=== PATIENT | male | born 1945 | race Caucasian/White ===

== ENCOUNTER 2018-11-03 07:35 | Day surgery (SDC) | payer MEDICARE ==
[2018-11-03] MEDS ORDERED: PROPOFOL INJ 200 MG/20 ML VIAL IV ONE (07:36)
[2018-11-03 09:22] VITALS: BP 139/77
--- NOTE | 2018-11-03 11:36 | Operative Report ---
Operative Report DATE OF SURGERY: 11/03/18 PREOPERATIVE DIAGNOSIS: Colorectal cancer screening. Dysphagia POSTOPERATIVE DIAGNOSIS: Schatzki's ring that has broken in situ. Hiatal hernia. Gastritis status post biopsy right Helicobacter pylori. Large colon polyp at approximately 35 cm not able to be removed via colonoscopy. The area was tattooed with Kenia ink. Biopsies obtained. Surgical referral needed OPERATION: Colonoscopy with submucosal injection of Kenia ink. Colonoscopy with biopsy. EGD with biopsy SURGEON: FATMATA HATFIELD ANESTHESIA: LMAC TISSUE REMOVED OR ALTERED: As noted above. COMPLICATIONS: None. ESTIMATED BLOOD LOSS: None. INTRAOPERATIVE FINDINGS: As noted above. PROCEDURE: Patient tolerated the procedure well. No immediate postprocedure complications are noted. Patient is discharged in good condition. Discharge date 11/03/2018. Discharge diet: Regular. Discharge activity: Regular. 2 to 3-week follow-up to discuss findings. Surgical referral needs to be done for lesion to be removed via surgery rather than colonoscopy. Wait on the pathology.
== END 2018-11-03 09:35 | disposition home or self-care (01) ==
LOC: END 07:35
PROVIDERS: ATTEND Internal Medicine Gastroenterology
DX: Z12.11 Encounter for screening for malignant neoplasm of colon (principal); D12.6 Benign neoplasm of colon, unspecified; Z87.891 Personal history of nicotine dependence; K22.2 Esophageal obstruction; K29.50 Unspecified chronic gastritis without bleeding; K44.9 Diaphragmatic hernia without obstruction or gangrene; Z79.82 Long term (current) use of aspirin; Z79.899 Other long term (current) drug therapy; Z13.89 Encounter for screening for other disorder
CPT/HCPCS: 43239; 45380; 45381; 88305 ×2; 00813; J2704; 813

== ENCOUNTER → 2018-11-21 | Outpatient (CLI) | payer MEDICARE ==
[2018-11-21 08:52] LABS: ABSOLUTE BASOPHILS # (AUTO) 0.1 10^3/uL (0.0-0.2); ABSOLUTE EOSINOPHILS # (AUTO) 0.4 10^3/uL (0.0-0.6); ABSOLUTE MONOCYTES (AUTO) 0.8 10^3/uL (0.1-1.4); ABSOLUTE NEUT (AUTO) 4.2 10^3/uL (1.7-8.2); BASOPHILS % (AUTO) 0.7 % (0-2); EOSINOPHILS % (AUTO) 5.3 % (0-6); HEMATOCRIT 36.9 % (37.9-51.0); LYMPHOCYTES % (AUTO) 26.7 % (13-45); MEAN CORPUSCULAR HEMOGLOBIN 28.1 pg (27.0-33.4); MEAN CORPUSCULAR HGB CONC 32.6 g/dL (32.0-36.0); MEAN CORPUSCULAR VOLUME 86 fl (80-97); MONOCYTES % (AUTO) 10.6 % (3-13); PLATELET COUNT 233 10^3/uL (150-450); RED BLOOD COUNT 4.28 10^6/uL (4.35-5.55); RED CELL DISTRIBUTION WIDTH 16.8 % (11.5-14.0); SEGMENTED NEUTROPHILS % (AUTO) 56.7 % (42-78); TOTAL CELLS COUNTED % (AUTO) 100 %; WHITE BLOOD COUNT 7.4 10^3/uL (4.0-10.5)
== END ==
LOC: OD 08:12
PROVIDERS: ATTEND Surgery
DX: C18.7 Malignant neoplasm of sigmoid colon (principal)
CPT/HCPCS: 36415; 82378; 85025

== ENCOUNTER → 2018-11-22 | Outpatient (CLI) | payer MEDICARE ==
[2018-11-22 13:12] LABS: ANION GAP 10 (5-19); BLOOD UREA NITROGEN 28 mg/dL (7-20); CALCIUM 9.5 mg/dL (8.4-10.2); CARBON DIOXIDE 25 mmol/L (22-30); CHLORIDE 105 mmol/L (98-107); GLUCOSE 85 mg/dL (75-110); POTASSIUM 5.5 mmol/L (3.6-5.0)
== END ==
LOC: OD 12:11
PROVIDERS: ATTEND Surgery
DX: D12.6 Benign neoplasm of colon, unspecified (principal); N28.9 Disorder of kidney and ureter, unspecified; K21.9 Gastro-esophageal reflux disease without esophagitis; Z87.898 Personal history of other specified conditions
CPT/HCPCS: 36415; 80048

== ENCOUNTER → 2018-12-26 | Outpatient (CLI) | payer MEDICARE ==
[2018-12-26 10:05] LABS: ANION GAP 10 (5-19); BLOOD UREA NITROGEN 34 mg/dL (7-20); CARBON DIOXIDE 24 mmol/L (22-30); CHLORIDE 105 mmol/L (98-107); GLUCOSE 81 mg/dL (75-110); POTASSIUM 4.5 mmol/L (3.6-5.0)
== END ==
LOC: OD 08:10
PROVIDERS: ATTEND Physician Assistant Surgical
DX: C18.7 Malignant neoplasm of sigmoid colon (principal); Z95.2 Presence of prosthetic heart valve; Z87.898 Personal history of other specified conditions
CPT/HCPCS: 36415; 80048

== ENCOUNTER 2018-12-28 05:31 | Inpatient (IN) | payer MEDICARE ==
[2018-12-21 11:06] LABS: ABSOLUTE EOSINOPHILS # (AUTO) 0.4 10^3/uL (0.0-0.6); ABSOLUTE LYMPHOCYTES (AUTO) 1.5 10^3/uL (0.5-4.7); ABSOLUTE MONOCYTES (AUTO) 0.8 10^3/uL (0.1-1.4); ABSOLUTE NEUT (AUTO) 5.2 10^3/uL (1.7-8.2); BASOPHILS % (AUTO) 0.6 % (0-2); HEMATOCRIT 37.6 % (37.9-51.0); HEMOGLOBIN 12.5 g/dL (13.5-17.0); MEAN CORPUSCULAR HEMOGLOBIN 29.4 pg (27.0-33.4); MEAN CORPUSCULAR HGB CONC 33.2 g/dL (32.0-36.0); MEAN CORPUSCULAR VOLUME 89 fl (80-97); MONOCYTES % (AUTO) 10.1 % (3-13); PLATELET COUNT 257 10^3/uL (150-450); RED BLOOD COUNT 4.25 10^6/uL (4.35-5.55); RED CELL DISTRIBUTION WIDTH 17.3 % (11.5-14.0); SEGMENTED NEUTROPHILS % (AUTO) 65.3 % (42-78); TOTAL CELLS COUNTED % (AUTO) 100 %
[2018-12-21 11:46] LABS: POTASSIUM 5.1 mmol/L (3.6-5.0)
--- NOTE | 2018-12-21 11:50 | RADIOLOGY REPORT (SQ) ---
EXAM DESCRIPTION: CHEST PA/LATERAL COMPLETED DATE/TIME: 12/21/2018 10:02 am REASON FOR STUDY: PRE-OP COMPARISON: None. EXAM PARAMETERS: NUMBER OF VIEWS: two views TECHNIQUE: Digital Frontal and Lateral radiographic views of the chest acquired. RADIATION DOSE: NA LIMITATIONS: none FINDINGS: LUNGS AND PLEURA: No opacities, masses or pneumothorax. No pleural effusion. MEDIASTINUM AND HILAR STRUCTURES: No masses or contour abnormalities. HEART AND VASCULAR STRUCTURES: Old sternotomy for mitral valve replacement. Clips anterior mediastin um likely post CABG. No cardiomegaly. BONES: Chronic appearing L1 50% upper endplate compression deformity HARDWARE: None in the chest. OTHER: No other significant finding. IMPRESSION: No acute findings TECHNICAL DOCUMENTATION: JOB ID: [id number] [employer]- All Rights Reserved Reading location - IP/workstation name: [email or web address]
[~2018-12-28 05:31] MED LIST: CEFAZOLIN SODIUM 1 GM in DEXTROSE 5%-WATER 50 ML IV PRN; LACTATED RINGERS 1000 ML IV PRN; LIDOCAINE 0.5% INJ-PF (5 MG/ML) 50 ML SDV SUBCUT PRN; METRONIDAZOLE 500 MG/NS RTU 500 MG/100 ML RTUPB IV ONE; METRONIDAZOLE 500 MG/NS RTU 500 MG/100 ML RTUPB IV PRN
[2018-12-28] MEDS ORDERED: FENTANYL CITRATE INJ/PF 250 MCG/5 ML AMPULE ONE (07:04)
[2018-12-28] MEDS ORDERED: MORPHINE SULFATE 10 MG/ML INJ ONE (07:04)
[2018-12-28] MEDS ORDERED: LIDOCAINE 2% INJ-PF (100 MG/5 ML) SYRINGE ONE (07:05)
[2018-12-28] MEDS ORDERED: PROPOFOL INJ 200 MG/20 ML VIAL IV ONE (07:05)
[2018-12-28] MEDS ORDERED: MIDAZOLAM 2 MG/2 ML INJ ONE (07:08)
[2018-12-28] MEDS ORDERED: MEPERIDINE HCL/PF INJ 25 MG/1 ML DISP.SYRIN IV PRN (08:41)
[2018-12-28] MEDS ORDERED: MORPHINE SULFATE 10 MG/ML INJ IV PRN ×2 (08:41→10:51)
[2018-12-28] MEDS ORDERED: DIPHENHYDRAMINE HCL 50 MG/ML VIAL IV PRN (08:41)
[2018-12-28] MEDS ORDERED: FENTANYL CITRATE INJ/PF 100 MCG/2 ML AMPUL IV PRN (08:41)
[2018-12-28] MEDS ORDERED: PROMETHAZINE HCL INJ 25 MG/1 ML VIAL IV PRN (08:41)
[2018-12-28] MEDS ORDERED: DEXTROSE 40% GEL 15 GM TUBE PO PRN ×2 (10:44)
[2018-12-28] MEDS ORDERED: DEXTROSE 50%-WATER 25 GM/50 ML DISP.SYRIN IV PRN ×2 (10:44)
[2018-12-28] MEDS ORDERED: GLUCAGON,HUMAN RECOMB 1 MG INJ SUBCUT PRN (10:44)
[2018-12-28] MEDS: FENTANYL CITRATE INJ/PF 100 MCG/2 ML AMPUL ONE ×2 (11:08→11:15)
[2018-12-28] MEDS ORDERED: ACETAMINOPHEN 1,000 MG/100 ML RTUPB IV ONE (11:29)
[2018-12-28] MEDS: HYDROMORPHONE HCL INJ/PF 2 MG/ML AMPULE ONE ×3 (11:29→11:40)
--- NOTE | 2018-12-28 11:31 | Operative Report ---
Nonrecallable Operative Report DATE OF SURGERY: 12/28/18 PREOPERATIVE DIAGNOSIS: left colon mass POSTOPERATIVE DIAGNOSIS: left colon mass OPERATION: left hemicolectomy SURGEON: CHIVO FAIRBANKS 1ST ELECT[employer]IC [employer]AGING SYSTEM OPERATOR: GAVIOTA GRAY ANESTHESIA: GA TISSUE REMOVED OR ALTERED: left colon and splenic flexure COMPLICATIONS: none ESTIMATED BLOOD LOSS: 100cc INTRAOPERATIVE FINDINGS: see note PROCEDURE: Patient was brought to the operating room and awake alert stable condition pl aced in the upper table supine position induced under general anesthesia intubated he was then placed in a low lithotomy position and a Almanzar catheter was placed. After appropriate timeout site verification a varies needle was placed into the umbilicus and the abdomen was insufflated 6 L of CO2 gas. The supraumbilical 10 mm incision was made with a 15 blade and a 10 mm port placed in the abdominal cavity. Intra-abdominal visualization revealed no evidence of Veress needle or trocar injury. 2 lateral foot ports were placed under direct vision on the right side of 5 and a 11 and then on the left side a 5 mm port was also placed under direct vision. We visualized pelvis identified the sigmoid colon was fixed to the left peritoneal reflection which was taken down with the LigaSure device. We finally were able to deal deliver the entire sigmoid into the operative field and did not note in the tattooing on the serosa of the colon. We traced the descending colon up to the proximal descending colon were we noted the tattoo lisa. It was reported at 35 cm however it did appear to be in the proximal descending colon. Therefore we began our dissection by mobilizing the left colon along the white line of Toldt up to the spleen with the LigaSure device being careful not to injure the left ureter. We then mobilized the omentum off the transverse colon. We then came across the splenic flexure with LigaSure device. Freeing up the splenic flexure distal transverse colon and proximal descending colon. Once it was completely freed up we then made an incision on the left anterior abdominal wall with a 15 blade approximately 10 cm long carried our dissection down through subtenons tissue with Bovie cautery divided the rectus fascia with Bovie cautery and placed a wound protector. We delivered the splenic flexure distal transverse colon and proximal descending colon in through the wound. We came across the distal transverse colon with one firing the ALHAJI stapler with a blue load and then and divided the mesentery with the LigaSure device. We then came across the descending colon with one firing the Endo ALHAJI stapler with a blue load. We then performed a colocolostomy between the distal transverse colon and the mid descending colon in 2 layers using interrupted 2-0 silk for the serosal layer and a running 3-0 Vicryl for the mucosal layer. We closed the mesenteric defect with interrupted placed 2-0 silk sutures. Return to specimen back to the abdominal cavity checking for stasis and integrity of the anastomosis and was intact we copiously irrigated the abdominal cavity with normal saline in the pelvis and the left upper quadrant above the spleen and suctioned dry. We closed the peritoneal defect with a running 0 Vicryl suture the posterior sheath was closed with a running 0 Vicryl suture and the anterior sheath was closed with interrupted #2 Vicryl sutures. All skin incisions were then closed with standard skin clips. Estimated blood loss for the procedure was 100 cc sponge needle counts were correct x2 the patient was awakened in the operating room extubated transferred to the recovery room [facility] in stable condition Gaviota MONTAÑO was present for the entire procedure help with wound retraction wound closure.
[2018-12-28] MEDS ORDERED: PROMETHAZINE HCL INJ 25 MG/1 ML VIAL ONE (11:40)
[2018-12-28] MEDS ORDERED: GLYCOPYRROLATE 1 MG/5 ML VIAL ONE (11:58)
[2018-12-28] MEDS ORDERED: DEXAMETHASONE SOD PHOSPHATE INJ 4 MG/1 ML VIAL ONE (11:58)
[2018-12-28] MEDS ORDERED: SUCCINYLCHOLINE CHLORIDE INJ 200 MG/10 ML VIAL ONE (11:58)
[2018-12-28] MEDS ORDERED: PHENYLEPHRINE HCL INJ/PF 10 MG/1 ML SDV ONE (11:58)
[2018-12-28] MEDS ORDERED: ROCURONIUM BROMIDE INJ 50 MG/5 ML VIAL IV ONE (11:58)
[2018-12-28] MEDS ORDERED: NEOSTIGMINE METHYLSULFATE 10 MG/10 ML VIAL ONE (11:58)
[2018-12-28] MEDS ORDERED: ONDANSETRON HCL INJ/PF 4 MG/2 ML SDV ONE (11:58)
[2018-12-28 13:55] LABS: ABSOLUTE LYMPHOCYTES (AUTO) 0.7 10^3/uL (0.5-4.7); ABSOLUTE MONOCYTES (AUTO) 0.5 10^3/uL (0.1-1.4); ABSOLUTE NEUT (AUTO) 6.8 10^3/uL (1.7-8.2); BASOPHILS % (AUTO) 0.5 % (0-2); EOSINOPHILS % (AUTO) 0.2 % (0-6); HEMATOCRIT 35.7 % (37.9-51.0); HEMOGLOBIN 11.8 g/dL (13.5-17.0); LYMPHOCYTES % (AUTO) 8.2 % (13-45); MEAN CORPUSCULAR HEMOGLOBIN 29.4 pg (27.0-33.4); MEAN CORPUSCULAR VOLUME 89 fl (80-97); MONOCYTES % (AUTO) 5.9 % (3-13); PLATELET COUNT 205 10^3/uL (150-450); RED BLOOD COUNT 4.01 10^6/uL (4.35-5.55); RED CELL DISTRIBUTION WIDTH 16.8 % (11.5-14.0); SEGMENTED NEUTROPHILS % (AUTO) 85.2 % (42-78); TOTAL CELLS COUNTED % (AUTO) 100 %
[2018-12-28 14:15] LABS: ANION GAP 9 (5-19); BLOOD UREA NITROGEN 24 mg/dL (7-20); CARBON DIOXIDE 20 mmol/L (22-30); CHLORIDE 108 mmol/L (98-107); GLUCOSE 190 mg/dL (75-110); POTASSIUM 4.5 mmol/L (3.6-5.0)
[2018-12-28] MEDS: HEPARIN SOD (PORCINE) 5,000 UNIT/ML 1 ML VIAL SUBCUT SCH ×2 (15:02→21:02)
[2018-12-28] MEDS: MORPHINE SULFATE 10 MG/ML INJ IV PRN (18:28)
[2018-12-28] MEDS: DEXTROSE 5%-LACTATED RINGERS 1,000 ML IV PRN (18:31)
[2018-12-28] MEDS: FAMOTIDINE INJ/PF 20 MG/2 ML SDV IV SCH (21:02)
[2018-12-29] MEDS: DEXTROSE 5%-LACTATED RINGERS 1,000 ML IV PRN ×3 (03:01→21:49)
[2018-12-29] MEDS: MORPHINE SULFATE 10 MG/ML INJ IV PRN ×2 (03:01→06:01)
[2018-12-29 04:19] LABS: ABSOLUTE LYMPHOCYTES (AUTO) 1.3 10^3/uL (0.5-4.7); ABSOLUTE MONOCYTES (AUTO) 1.1 10^3/uL (0.1-1.4); ABSOLUTE NEUT (AUTO) 10.2 10^3/uL (1.7-8.2); BASOPHILS % (AUTO) 0.2 % (0-2); HEMATOCRIT 32.2 % (37.9-51.0); HEMOGLOBIN 10.7 g/dL (13.5-17.0); LYMPHOCYTES % (AUTO) 10.3 % (13-45); MEAN CORPUSCULAR HEMOGLOBIN 29.5 pg (27.0-33.4); MEAN CORPUSCULAR HGB CONC 33.2 g/dL (32.0-36.0); MEAN CORPUSCULAR VOLUME 89 fl (80-97); MONOCYTES % (AUTO) 8.7 % (3-13); PLATELET COUNT 187 10^3/uL (150-450); RED BLOOD COUNT 3.62 10^6/uL (4.35-5.55); RED CELL DISTRIBUTION WIDTH 16.7 % (11.5-14.0); SEGMENTED NEUTROPHILS % (AUTO) 80.8 % (42-78); TOTAL CELLS COUNTED % (AUTO) 100 %; WHITE BLOOD COUNT 12.7 10^3/uL (4.0-10.5)
[2018-12-29 04:39] LABS: ANION GAP 6 (5-19); BLOOD UREA NITROGEN 19 mg/dL (7-20); CALCIUM 8.3 mg/dL (8.4-10.2); CARBON DIOXIDE 24 mmol/L (22-30); CHLORIDE 107 mmol/L (98-107); GLUCOSE 123 mg/dL (75-110); POTASSIUM 4.6 mmol/L (3.6-5.0)
[2018-12-29] MEDS: HEPARIN SOD (PORCINE) 5,000 UNIT/ML 1 ML VIAL SUBCUT SCH ×3 (05:19→21:49)
--- NOTE | 2018-12-29 07:59 | PDOC PROGRESS REPORT ---
Subjective Progress Note for:: 12/29/18 Subjective:: pod # 1 s/p left hemicolectomy Reason For Visit: D12.6 BENIGN NEOPLASM OF COLON, UNSPECIFIED Physical Exam Vital Signs: Temp Pulse Resp BP Pulse Ox 98.6 F 85 17 117/52 L 97 12/28/18 23:33 12/28/18 23:33 12/28/18 23:33 12/28/18 23:33 12/28/18 23:33 Intake & Output 12/28/18 12/29/18 12/30/18 06:59 06:59 06:59 Intake Total 0 4300 Output Total 1400 Balance 0 2900 Weight 72.8 kg General appearance: PRESENT: mild distress Head exam: PRESENT: normocephalic Eye exam: PRESENT: EOMI Mouth exam: PRESENT: dry mucosa Neck exam: PRESENT: full ROM Respiratory exam: PRESENT: clear to auscultation tian Cardiovascular exam: PRESENT: RRR Pulses: PRESENT: normal radial pulses, normal femoral pulses Vascular exam: PRESENT: normal capillary refill GI/Abdominal exam: PRESENT: soft, tenderness - incisional Rectal exam: PRESENT: deferred Gentrourinary exam: PRESENT: indwelling catheter Extremities exam: PRESENT: full ROM Musculoskeletal exam: PRESENT: full ROM Neurological exam: PRESENT: alert, awake, oriented to person Psychiatric exam: PRESENT: appropriate affect Skin exam: PRESENT: dry Results Laboratory Results: 12/29/18 03:37 12/29/18 03:37 12/28/18 12/28/18 12/29/18 12:39 12:39 03:37 WBC 8.0 12.7 H RBC 4.01 L 3.62 L Hgb 11.8 L 10.7 L Hct 35.7 L 32.2 L MCV 89 89 MCH 29.4 29.5 MCHC 33.0 33.2 RDW 16.8 H 16.7 H Plt Count 205 187 Seg Neutrophils % 85.2 H 80.8 H Sodium 137.0 Potassium 4.5 Chloride 108 H Carbon Dioxide 20 L Anion Gap 9 BUN 24 H Creatinine 1.87 H Est GFR ( Amer) 43 L Glucose 190 H Calcium 8.0 L 12/29/18 03:37 WBC RBC Hgb Hct MCV MCH MCHC RDW Plt Count Seg Neutrophils % Sodium 137.0 Potassium 4.6 Chloride 107 Carbon Dioxide 24 Anion Gap 6 BUN 19 Creatinine 1.89 H Est GFR ( Amer) 42 L Glucose 123 H Calcium 8.3 L Impressions: Chest X-Ray 12/21/18 09:58 IMPRESSION: No acute findings Assessment & Plan - Time Time Spent with patient: 15-24 minutes - Plan Summary Plan Summary: add toradol for pain labs reviewd out of bed to chair today cont only ice chips
[2018-12-29] MEDS ORDERED: KETOROLAC TROMETHAMINE INJ/PF 30 MG/1 ML SDV IV SCH (08:00)
[2018-12-29] MEDS: FAMOTIDINE INJ/PF 20 MG/2 ML SDV IV SCH ×2 (09:15→21:49)
[2018-12-29] MEDS: KETOROLAC TROMETHAMINE INJ/PF 30 MG/1 ML SDV IV PRN ×2 (09:26→15:27)
[2018-12-29 13:17] LABS: ABSOLUTE LYMPHOCYTES (AUTO) 1.2 10^3/uL (0.5-4.7); ABSOLUTE NEUT (AUTO) 10.6 10^3/uL (1.7-8.2); BASOPHILS % (AUTO) 0.2 % (0-2); EOSINOPHILS % (AUTO) 0.3 % (0-6); HEMATOCRIT 33.2 % (37.9-51.0); HEMOGLOBIN 10.8 g/dL (13.5-17.0); MEAN CORPUSCULAR HEMOGLOBIN 29.2 pg (27.0-33.4); MEAN CORPUSCULAR HGB CONC 32.5 g/dL (32.0-36.0); MEAN CORPUSCULAR VOLUME 90 fl (80-97); MONOCYTES % (AUTO) 7.7 % (3-13); PLATELET COUNT 195 10^3/uL (150-450); SEGMENTED NEUTROPHILS % (AUTO) 82.8 % (42-78); TOTAL CELLS COUNTED % (AUTO) 100 %; WHITE BLOOD COUNT 12.8 10^3/uL (4.0-10.5)
[2018-12-29 13:39] LABS: ANION GAP 7 (5-19); BLOOD UREA NITROGEN 19 mg/dL (7-20); CALCIUM 8.5 mg/dL (8.4-10.2); CARBON DIOXIDE 25 mmol/L (22-30); CHLORIDE 105 mmol/L (98-107); GLUCOSE 111 mg/dL (75-110); POTASSIUM 4.7 mmol/L (3.6-5.0)
[2018-12-30 04:55] LABS: ABSOLUTE BASOPHILS # (AUTO) 0.1 10^3/uL (0.0-0.2); ABSOLUTE EOSINOPHILS # (AUTO) 0.2 10^3/uL (0.0-0.6); ABSOLUTE LYMPHOCYTES (AUTO) 1.1 10^3/uL (0.5-4.7); ABSOLUTE MONOCYTES (AUTO) 0.8 10^3/uL (0.1-1.4); ABSOLUTE NEUT (AUTO) 9.1 10^3/uL (1.7-8.2); BASOPHILS % (AUTO) 0.5 % (0-2); EOSINOPHILS % (AUTO) 1.5 % (0-6); HEMATOCRIT 27.6 % (37.9-51.0); HEMOGLOBIN 9.1 g/dL (13.5-17.0); MEAN CORPUSCULAR HEMOGLOBIN 29.8 pg (27.0-33.4); MEAN CORPUSCULAR VOLUME 90 fl (80-97); MONOCYTES % (AUTO) 7.5 % (3-13); PLATELET COUNT 165 10^3/uL (150-450); RED BLOOD COUNT 3.05 10^6/uL (4.35-5.55); RED CELL DISTRIBUTION WIDTH 16.5 % (11.5-14.0); SEGMENTED NEUTROPHILS % (AUTO) 80.5 % (42-78); TOTAL CELLS COUNTED % (AUTO) 100 %; WHITE BLOOD COUNT 11.2 10^3/uL (4.0-10.5)
[2018-12-30 05:07] LABS: GLUCOSE 113 mg/dL (75-110)
[2018-12-30 05:08] LABS: BLOOD UREA NITROGEN 21 mg/dL (7-20); CALCIUM 8.2 mg/dL (8.4-10.2)
[2018-12-30 05:09] LABS: CHLORIDE 107 mmol/L (98-107)
[2018-12-30 05:24] LABS: ANION GAP 5 (5-19); CARBON DIOXIDE 24 mmol/L (22-30); POTASSIUM 4.2 mmol/L (3.6-5.0)
[2018-12-30] MEDS: HEPARIN SOD (PORCINE) 5,000 UNIT/ML 1 ML VIAL SUBCUT SCH ×3 (05:39→21:45)
[2018-12-30] MEDS: DEXTROSE 5%-LACTATED RINGERS 1,000 ML IV PRN ×2 (08:06→16:56)
--- NOTE | 2018-12-30 08:23 | PDOC PROGRESS REPORT ---
Subjective Progress Note for:: 12/30/18 Subjective:: feels better was up in chair yesterday Reason For Visit: D12.6 BENIGN NEOPLASM OF COLON, UNSPECIFIED Physical Exam Vital Signs: Temp Pulse Resp BP Pulse Ox 98.0 F 81 17 137/64 H 98 12/29/18 23:17 12/29/18 23:17 12/29/18 23:17 12/29/18 23:17 12/29/18 23:17 Intake & Output 12/29/18 12/30/18 12/31/18 06:59 06:59 06:59 Intake Total 4300 1840 1000 Output Total 1400 1075 Balance 2900 765 1000 Weight 72.8 kg 78.2 kg General appearance: PRESENT: no acute distress Head exam: PRESENT: normocephalic Eye exam: PRESENT: EOMI Ear exam: PRESENT: normal external ear exam Neck exam: PRESENT: full ROM Respiratory exam: PRESENT: clear to auscultation tian Cardiovascular exam: PRESENT: RRR Pulses: PRESENT: normal radial pulses, normal femoral pulses Vascular exam: PRESENT: normal capillary refill GI/Abdominal exam: PRESENT: normal bowel sounds, soft, other - wound clean, dry Rectal exam: PRESENT: deferred Extremities exam: PRESENT: full ROM Musculoskeletal exam: PRESENT: full ROM Neurological exam: PRESENT: alert, awake, oriented to person Psychiatric exam: PRESENT: appropriate affect Skin exam: PRESENT: dry Results Laboratory Results: 12/30/18 04:02 12/30/18 04:02 12/29/18 12/29/18 12/30/18 12:44 12:44 04:02 WBC 12.8 H 11.2 H RBC 3.70 L 3.05 L Hgb 10.8 L 9.1 L Hct 33.2 L 27.6 L MCV 90 90 MCH 29.2 29.8 MCHC 32.5 33.0 RDW 17.0 H 16.5 H Plt Count 195 165 Seg Neutrophils % 82.8 H 80.5 H Sodium 137.3 Potassium 4.7 Chloride 105 Carbon Dioxide 25 Anion Gap 7 BUN 19 Creatinine 2.12 H Est GFR ( Amer) 37 L Glucose 111 H Calcium 8.5 12/30/18 04:02 WBC RBC Hgb Hct MCV MCH MCHC RDW Plt Count Seg Neutrophils % Sodium 135.6 L Potassium 4.2 Chloride 107 Carbon Dioxide 24 Anion Gap 5 BUN 21 H Creatinine 2.23 H Est GFR ( Amer) 35 L Glucose 113 H Calcium 8.2 L Impressions: Chest X-Ray 12/21/18 09:58 IMPRESSION: No acute findings Assessment & Plan - Time Time Spent with patient: 25-34 minutes - Inpatient Certification Medical Necessity: Need For IV Fluids, Need for Pain Control, Need for IV Antibiotics - Plan Summary Plan Summary: pt feels better labs reviwed creat stable will start clears today cont to await bowel function return.
[2018-12-30] MEDS: KETOROLAC TROMETHAMINE INJ/PF 30 MG/1 ML SDV IV PRN ×2 (09:24→21:45)
[2018-12-30] MEDS: FAMOTIDINE INJ/PF 20 MG/2 ML SDV IV SCH ×2 (09:24→21:45)
[2018-12-30 11:27] LABS: ABSOLUTE EOSINOPHILS # (AUTO) 0.2 10^3/uL (0.0-0.6); ABSOLUTE LYMPHOCYTES (AUTO) 0.8 10^3/uL (0.5-4.7); ABSOLUTE MONOCYTES (AUTO) 0.8 10^3/uL (0.1-1.4); ABSOLUTE NEUT (AUTO) 9.5 10^3/uL (1.7-8.2); BASOPHILS % (AUTO) 0.4 % (0-2); EOSINOPHILS % (AUTO) 1.7 % (0-6); LYMPHOCYTES % (AUTO) 7.4 % (13-45); MEAN CORPUSCULAR HEMOGLOBIN 29.8 pg (27.0-33.4); MEAN CORPUSCULAR HGB CONC 33.4 g/dL (32.0-36.0); MEAN CORPUSCULAR VOLUME 89 fl (80-97); MONOCYTES % (AUTO) 7.4 % (3-13); PLATELET COUNT 158 10^3/uL (150-450); RED BLOOD COUNT 3.03 10^6/uL (4.35-5.55); RED CELL DISTRIBUTION WIDTH 16.2 % (11.5-14.0); SEGMENTED NEUTROPHILS % (AUTO) 83.1 % (42-78); TOTAL CELLS COUNTED % (AUTO) 100 %; WHITE BLOOD COUNT 11.4 10^3/uL (4.0-10.5)
[2018-12-30 11:55] LABS: ANION GAP 8 (5-19); BLOOD UREA NITROGEN 21 mg/dL (7-20); CALCIUM 8.3 mg/dL (8.4-10.2); CARBON DIOXIDE 21 mmol/L (22-30); CHLORIDE 107 mmol/L (98-107); GLUCOSE 122 mg/dL (75-110)
[2018-12-30] MEDS: ACETAMINOPHEN 325 MG TABLET PO PRN (17:43)
[2018-12-31] MEDS: ACETAMINOPHEN 325 MG TABLET PO PRN ×3 (01:29→23:20)
[2018-12-31] MEDS: DEXTROSE 5%-LACTATED RINGERS 1,000 ML IV PRN ×2 (04:35→15:08)
[2018-12-31] MEDS: HEPARIN SOD (PORCINE) 5,000 UNIT/ML 1 ML VIAL SUBCUT SCH ×3 (05:02→21:10)
[2018-12-31 05:32] LABS: ABSOLUTE EOSINOPHILS # (AUTO) 0.4 10^3/uL (0.0-0.6); ABSOLUTE LYMPHOCYTES (AUTO) 0.8 10^3/uL (0.5-4.7); ABSOLUTE MONOCYTES (AUTO) 0.8 10^3/uL (0.1-1.4); ABSOLUTE NEUT (AUTO) 8.1 10^3/uL (1.7-8.2); BASOPHILS % (AUTO) 0.4 % (0-2); EOSINOPHILS % (AUTO) 4.1 % (0-6); HEMATOCRIT 22.8 % (37.9-51.0); LYMPHOCYTES % (AUTO) 7.7 % (13-45); MEAN CORPUSCULAR HEMOGLOBIN 30.2 pg (27.0-33.4); MEAN CORPUSCULAR HGB CONC 33.4 g/dL (32.0-36.0); MEAN CORPUSCULAR VOLUME 91 fl (80-97); MONOCYTES % (AUTO) 8.3 % (3-13); PLATELET COUNT 158 10^3/uL (150-450); RED BLOOD COUNT 2.52 10^6/uL (4.35-5.55); SEGMENTED NEUTROPHILS % (AUTO) 79.5 % (42-78); TOTAL CELLS COUNTED % (AUTO) 100 %; WHITE BLOOD COUNT 10.1 10^3/uL (4.0-10.5)
[2018-12-31 05:39] LABS: HEMOGLOBIN 7.6 g/dL (13.5-17.0)
[2018-12-31 05:50] LABS: ANION GAP 5 (5-19); BLOOD UREA NITROGEN 21 mg/dL (7-20); CALCIUM 7.9 mg/dL (8.4-10.2); CARBON DIOXIDE 24 mmol/L (22-30); CHLORIDE 106 mmol/L (98-107); GLUCOSE 114 mg/dL (75-110); POTASSIUM 3.8 mmol/L (3.6-5.0)
[2018-12-31] MEDS: FAMOTIDINE INJ/PF 20 MG/2 ML SDV IV SCH ×2 (09:48→21:10)
[2018-12-31 11:07] LABS: ABSOLUTE BASOPHILS # (AUTO) 0.1 10^3/uL (0.0-0.2); ABSOLUTE EOSINOPHILS # (AUTO) 0.4 10^3/uL (0.0-0.6); ABSOLUTE LYMPHOCYTES (AUTO) 0.7 10^3/uL (0.5-4.7); ABSOLUTE MONOCYTES (AUTO) 0.9 10^3/uL (0.1-1.4); ABSOLUTE NEUT (AUTO) 8.4 10^3/uL (1.7-8.2); BASOPHILS % (AUTO) 0.5 % (0-2); EOSINOPHILS % (AUTO) 4.1 % (0-6); HEMATOCRIT 24.4 % (37.9-51.0); HEMOGLOBIN 8.3 g/dL (13.5-17.0); LYMPHOCYTES % (AUTO) 6.6 % (13-45); MEAN CORPUSCULAR HEMOGLOBIN 30.3 pg (27.0-33.4); MEAN CORPUSCULAR HGB CONC 33.9 g/dL (32.0-36.0); MEAN CORPUSCULAR VOLUME 89 fl (80-97); PLATELET COUNT 165 10^3/uL (150-450); RED BLOOD COUNT 2.73 10^6/uL (4.35-5.55); RED CELL DISTRIBUTION WIDTH 15.5 % (11.5-14.0); SEGMENTED NEUTROPHILS % (AUTO) 79.8 % (42-78); TOTAL CELLS COUNTED % (AUTO) 100 %; WHITE BLOOD COUNT 10.5 10^3/uL (4.0-10.5)
[2018-12-31 11:41] LABS: ANION GAP 8 (5-19); BLOOD UREA NITROGEN 21 mg/dL (7-20); CALCIUM 8.1 mg/dL (8.4-10.2); CARBON DIOXIDE 22 mmol/L (22-30); CHLORIDE 106 mmol/L (98-107); GLUCOSE 101 mg/dL (75-110)
[2018-12-31] MEDS: ONDANSETRON HCL INJ/PF 4 MG/2 ML SDV IV PRN (18:56)
[2018-12-31] MEDS ORDERED: CALCIUM CARBONATE 500 MG TAB.CHEW PO PRN (20:14)
--- NOTE | 2018-12-31 23:11 | PDOC PROGRESS REPORT ---
Subjective Progress Note for:: 12/31/18 Reason For Visit: D12.6 BENIGN NEOPLASM OF COLON, UNSPECIFIED Physical Exam Vital Signs: Temp Pulse Resp BP Pulse Ox 98.0 F 65 17 145/69 H 95 12/31/18 19:55 12/31/18 19:55 12/31/18 19:55 12/31/18 19:55 12/31/18 19:55 Intake & Output 12/30/18 12/31/18 01/01/19 06:59 06:59 06:59 Intake Total 1840 3393 1650 Output Total 1075 850 500 Balance 765 2543 1150 Weight 78.2 kg 80.5 kg Results Laboratory Results: 12/31/18 10:52 12/31/18 10:52 12/31/18 12/31/18 12/31/18 04:41 04:41 10:52 WBC 10.1 10.5 RBC 2.52 L 2.73 L Hgb 7.6 L 8.3 L Hct 22.8 L 24.4 L MCV 91 89 MCH 30.2 30.3 MCHC 33.4 33.9 RDW 16.0 H 15.5 H Plt Count 158 165 Seg Neutrophils % 79.5 H 79.8 H Sodium 134.9 L Potassium 3.8 Chloride 106 Carbon Dioxide 24 Anion Gap 5 BUN 21 H Creatinine 1.91 H Est GFR ( Amer) 42 L Glucose 114 H Calcium 7.9 L 12/31/18 10:52 WBC RBC Hgb Hct MCV MCH MCHC RDW Plt Count Seg Neutrophils % Sodium 135.5 L Potassium 4.0 Chloride 106 Carbon Dioxide 22 Anion Gap 8 BUN 21 H Creatinine 1.94 H Est GFR ( Amer) 41 L Glucose 101 Calcium 8.1 L Impressions: Chest X-Ray 12/21/18 09:58 IMPRESSION: No acute findings Assessment & Plan - Diagnosis (1) Colonic mass Is this a current diagnosis for this admission?: Yes - Time Time Spent with patient: Less than 15 minutes - Plan Summary Plan Summary: This is a 73-year-old male status post laparoscopic left hemicolectomy. The patient is doing well today. He is tolerating liquids. He reports passing large amounts of flatus and having a bowel movement. He is requesting solid food to eat. I will request a regular diet. Ambulate in the hallway. Aggressive pulmonary toilet.
[2019-01-01] MEDS: DEXTROSE 5%-LACTATED RINGERS 1,000 ML IV PRN (02:17)
[2019-01-01 05:09] LABS: ABSOLUTE BASOPHILS # (AUTO) 0.1 10^3/uL (0.0-0.2); ABSOLUTE EOSINOPHILS # (AUTO) 0.4 10^3/uL (0.0-0.6); ABSOLUTE MONOCYTES (AUTO) 1.1 10^3/uL (0.1-1.4); ABSOLUTE NEUT (AUTO) 7.2 10^3/uL (1.7-8.2); BASOPHILS % (AUTO) 0.9 % (0-2); EOSINOPHILS % (AUTO) 4.3 % (0-6); HEMATOCRIT 23.5 % (37.9-51.0); LYMPHOCYTES % (AUTO) 10.5 % (13-45); MEAN CORPUSCULAR HEMOGLOBIN 30.4 pg (27.0-33.4); MEAN CORPUSCULAR HGB CONC 33.9 g/dL (32.0-36.0); MEAN CORPUSCULAR VOLUME 90 fl (80-97); PLATELET COUNT 207 10^3/uL (150-450); RED BLOOD COUNT 2.61 10^6/uL (4.35-5.55); RED CELL DISTRIBUTION WIDTH 15.8 % (11.5-14.0); SEGMENTED NEUTROPHILS % (AUTO) 73.3 % (42-78); TOTAL CELLS COUNTED % (AUTO) 100 %; WHITE BLOOD COUNT 9.8 10^3/uL (4.0-10.5)
[2019-01-01 05:24] LABS: HEMOGLOBIN 7.9 g/dL (13.5-17.0)
[2019-01-01 05:25] LABS: ANION GAP 6 (5-19); BLOOD UREA NITROGEN 20 mg/dL (7-20); CALCIUM 8.2 mg/dL (8.4-10.2); CARBON DIOXIDE 23 mmol/L (22-30); CHLORIDE 106 mmol/L (98-107); GLUCOSE 105 mg/dL (75-110); POTASSIUM 4.1 mmol/L (3.6-5.0)
[2019-01-01] MEDS: HEPARIN SOD (PORCINE) 5,000 UNIT/ML 1 ML VIAL SUBCUT SCH (05:54)
[2019-01-01] MEDS: ONDANSETRON HCL INJ/PF 4 MG/2 ML SDV IV PRN (06:43)
--- NOTE | 2019-01-01 08:12 | PDOC PROGRESS REPORT ---
Subjective Progress Note for:: 01/01/19 Reason For Visit: D12.6 BENIGN NEOPLASM OF COLON, UNSPECIFIED Physical Exam Vital Signs: Temp Pulse Resp BP Pulse Ox 97.8 F 80 19 149/75 H 97 12/31/18 23:12 12/31/18 23:12 12/31/18 23:12 12/31/18 23:12 12/31/18 23:12 Intake & Output 12/31/18 01/01/19 01/02/19 06:59 06:59 06:59 Intake Total 3393 2700 Output Total 850 1050 Balance 2543 1650 Weight 80.5 kg 79.3 kg General appearance: PRESENT: no acute distress Head exam: PRESENT: normocephalic Eye exam: PRESENT: EOMI Ear exam: PRESENT: normal external ear exam Mouth exam: PRESENT: moist Neck exam: PRESENT: full ROM Respiratory exam: PRESENT: clear to auscultation tian Cardiovascular exam: PRESENT: RRR Pulses: PRESENT: normal radial pulses, normal femoral pulses GI/Abdominal exam: PRESENT: soft Rectal exam: PRESENT: deferred Extremities exam: PRESENT: full ROM Musculoskeletal exam: PRESENT: full ROM Neurological exam: PRESENT: alert, awake, oriented to person, oriented to place Psychiatric exam: PRESENT: appropriate affect Skin exam: PRESENT: dry Results Laboratory Results: 01/01/19 04:19 01/01/19 04:19 12/31/18 12/31/18 01/01/19 10:52 10:52 04:19 WBC 10.5 9.8 RBC 2.73 L 2.61 L Hgb 8.3 L 7.9 L Hct 24.4 L 23.5 L MCV 89 90 MCH 30.3 30.4 MCHC 33.9 33.9 RDW 15.5 H 15.8 H Plt Count 165 207 Seg Neutrophils % 79.8 H 73.3 Sodium 135.5 L Potassium 4.0 Chloride 106 Carbon Dioxide 22 Anion Gap 8 BUN 21 H Creatinine 1.94 H Est GFR ( Amer) 41 L Glucose 101 Calcium 8.1 L 01/01/19 04:19 WBC RBC Hgb Hct MCV MCH MCHC RDW Plt Count Seg Neutrophils % Sodium 135.4 L Potassium 4.1 Chloride 106 Carbon Dioxide 23 Anion Gap 6 BUN 20 Creatinine 1.84 H Est GFR ( Amer) 44 L Glucose 105 Calcium 8.2 L Impressions: Chest X-Ray 10/03/19 09:58 IMPRESSION: No acute findings Assessment & Plan - Diagnosis (1) Colonic mass Is this a current diagnosis for this admission?: Yes - Time Time Spent with patient: 25-34 minutes - Plan Summary Plan Summary: doing well passing flatus vomited yesterday with solids however felt it was food caught inthroat this am wants to go home will restart clears hep lock iv
[2019-01-01] MEDS ORDERED: DEXTROSE 5%-LACTATED RINGERS 1,000 ML IV PRN (08:13)
[2019-01-01] MEDS: FAMOTIDINE INJ/PF 20 MG/2 ML SDV IV SCH ×2 (09:43→22:15)
[2019-01-01] MEDS: ACETAMINOPHEN 325 MG TABLET PO PRN ×2 (10:38→22:15)
[2019-01-01 11:04] LABS: ABSOLUTE EOSINOPHILS # (AUTO) 0.4 10^3/uL (0.0-0.6); ABSOLUTE MONOCYTES (AUTO) 1.1 10^3/uL (0.1-1.4); BASOPHILS % (AUTO) 0.4 % (0-2); EOSINOPHILS % (AUTO) 3.6 % (0-6); HEMATOCRIT 26.4 % (37.9-51.0); HEMOGLOBIN 8.9 g/dL (13.5-17.0); LYMPHOCYTES % (AUTO) 9.2 % (13-45); MEAN CORPUSCULAR HEMOGLOBIN 30.3 pg (27.0-33.4); MEAN CORPUSCULAR HGB CONC 33.7 g/dL (32.0-36.0); MEAN CORPUSCULAR VOLUME 90 fl (80-97); MONOCYTES % (AUTO) 10.7 % (3-13); PLATELET COUNT 247 10^3/uL (150-450); RED BLOOD COUNT 2.92 10^6/uL (4.35-5.55); RED CELL DISTRIBUTION WIDTH 15.4 % (11.5-14.0); SEGMENTED NEUTROPHILS % (AUTO) 76.1 % (42-78); TOTAL CELLS COUNTED % (AUTO) 100 %; WHITE BLOOD COUNT 10.5 10^3/uL (4.0-10.5)
[2019-01-01 11:21] LABS: ANION GAP 6 (5-19); BLOOD UREA NITROGEN 17 mg/dL (7-20); CALCIUM 8.6 mg/dL (8.4-10.2); CARBON DIOXIDE 26 mmol/L (22-30); CHLORIDE 104 mmol/L (98-107); GLUCOSE 114 mg/dL (75-110); POTASSIUM 4.1 mmol/L (3.6-5.0)
[2019-01-02 05:17] LABS: ABSOLUTE BASOPHILS # (AUTO) 0.1 10^3/uL (0.0-0.2); ABSOLUTE EOSINOPHILS # (AUTO) 0.4 10^3/uL (0.0-0.6); ABSOLUTE MONOCYTES (AUTO) 1.2 10^3/uL (0.1-1.4); ABSOLUTE NEUT (AUTO) 6.6 10^3/uL (1.7-8.2); BASOPHILS % (AUTO) 0.8 % (0-2); EOSINOPHILS % (AUTO) 4.2 % (0-6); HEMATOCRIT 25.8 % (37.9-51.0); HEMOGLOBIN 8.6 g/dL (13.5-17.0); LYMPHOCYTES % (AUTO) 10.8 % (13-45); MEAN CORPUSCULAR HEMOGLOBIN 29.8 pg (27.0-33.4); MEAN CORPUSCULAR HGB CONC 33.3 g/dL (32.0-36.0); MEAN CORPUSCULAR VOLUME 89 fl (80-97); MONOCYTES % (AUTO) 12.9 % (3-13); PLATELET COUNT 242 10^3/uL (150-450); RED BLOOD COUNT 2.88 10^6/uL (4.35-5.55); RED CELL DISTRIBUTION WIDTH 15.1 % (11.5-14.0); SEGMENTED NEUTROPHILS % (AUTO) 71.3 % (42-78); TOTAL CELLS COUNTED % (AUTO) 100 %; WHITE BLOOD COUNT 9.3 10^3/uL (4.0-10.5)
[2019-01-02 05:41] LABS: ANION GAP 6 (5-19); BLOOD UREA NITROGEN 17 mg/dL (7-20); CALCIUM 8.3 mg/dL (8.4-10.2); CARBON DIOXIDE 26 mmol/L (22-30); CHLORIDE 104 mmol/L (98-107); GLUCOSE 91 mg/dL (75-110)
--- NOTE | 2019-01-02 09:03 | PDOC PROGRESS REPORT ---
Subjective Progress Note for:: 01/02/19 Subjective:: Feels well passing stool and flatus Reason For Visit: D12.6 BENIGN NEOPLASM OF COLON, UNSPECIFIED Physical Exam Vital Signs: Temp Pulse Resp BP Pulse Ox 98.5 F 67 20 148/62 H 93 01/02/19 08:00 01/02/19 08:00 01/02/19 08:00 01/02/19 08:00 01/02/19 08:00 Intake & Output 01/01/19 01/02/19 01/03/19 06:59 06:59 06:59 Intake Total 2700 680 Output Total 1050 975 Balance 1650 -295 Weight 79.3 kg 80.4 kg General appearance: PRESENT: no acute distress Head exam: PRESENT: normocephalic Eye exam: PRESENT: EOMI Ear exam: PRESENT: normal external ear exam Mouth exam: PRESENT: moist Neck exam: PRESENT: full ROM Respiratory exam: PRESENT: clear to auscultation tian Cardiovascular exam: PRESENT: RRR Pulses: PRESENT: normal radial pulses, normal femoral pulses GI/Abdominal exam: PRESENT: soft Rectal exam: PRESENT: deferred Extremities exam: PRESENT: full ROM Musculoskeletal exam: PRESENT: full ROM Neurological exam: PRESENT: alert, awake, oriented to person, oriented to place Psychiatric exam: PRESENT: appropriate affect Skin exam: PRESENT: dry Results Laboratory Results: 01/02/19 04:25 01/02/19 04:25 01/01/19 01/01/19 01/02/19 10:45 10:45 04:25 WBC 10.5 9.3 RBC 2.92 L 2.88 L Hgb 8.9 L 8.6 L Hct 26.4 L 25.8 L MCV 90 89 MCH 30.3 29.8 MCHC 33.7 33.3 RDW 15.4 H 15.1 H Plt Count 247 242 Seg Neutrophils % 76.1 71.3 Sodium 136.2 L Potassium 4.1 Chloride 104 Carbon Dioxide 26 Anion Gap 6 BUN 17 Creatinine 1.97 H Est GFR ( Amer) 40 L Glucose 114 H Calcium 8.6 01/02/19 04:25 WBC RBC Hgb Hct MCV MCH MCHC RDW Plt Count Seg Neutrophils % Sodium 135.5 L Potassium 4.0 Chloride 104 Carbon Dioxide 26 Anion Gap 6 BUN 17 Creatinine 1.80 H Est GFR ( Amer) 45 L Glucose 91 Calcium 8.3 L Impressions: Chest X-Ray 12/21/18 09:58 IMPRESSION: No acute findings Assessment & Plan - Diagnosis (1) Colonic mass Is this a current diagnosis for this admission?: Yes - Time Time Spent with patient: 25-34 minutes - Plan Summary Plan Summary: Impression status post ascending colectomy now with return of bowel function Labs reviewed CBC in normal limits creatinine stable We will advance diet to full liquids today probable discharge tomorrow Discussed benign pathology results with the patient
[2019-01-02 11:13] LABS: ABSOLUTE BASOPHILS # (AUTO) 0.1 10^3/uL (0.0-0.2); ABSOLUTE EOSINOPHILS # (AUTO) 0.5 10^3/uL (0.0-0.6); ABSOLUTE LYMPHOCYTES (AUTO) 1.1 10^3/uL (0.5-4.7); ABSOLUTE MONOCYTES (AUTO) 1.2 10^3/uL (0.1-1.4); ABSOLUTE NEUT (AUTO) 8.3 10^3/uL (1.7-8.2); BASOPHILS % (AUTO) 0.9 % (0-2); EOSINOPHILS % (AUTO) 4.3 % (0-6); HEMATOCRIT 27.4 % (37.9-51.0); LYMPHOCYTES % (AUTO) 9.8 % (13-45); MEAN CORPUSCULAR HEMOGLOBIN 29.6 pg (27.0-33.4); MEAN CORPUSCULAR VOLUME 90 fl (80-97); MONOCYTES % (AUTO) 10.9 % (3-13); PLATELET COUNT 249 10^3/uL (150-450); RED BLOOD COUNT 3.06 10^6/uL (4.35-5.55); RED CELL DISTRIBUTION WIDTH 15.2 % (11.5-14.0); SEGMENTED NEUTROPHILS % (AUTO) 74.1 % (42-78); TOTAL CELLS COUNTED % (AUTO) 100 %; WHITE BLOOD COUNT 11.2 10^3/uL (4.0-10.5)
[2019-01-02 11:40] LABS: ANION GAP 6 (5-19); BLOOD UREA NITROGEN 16 mg/dL (7-20); CALCIUM 8.3 mg/dL (8.4-10.2); CARBON DIOXIDE 26 mmol/L (22-30); CHLORIDE 101 mmol/L (98-107); GLUCOSE 120 mg/dL (75-110)
[2019-01-02] MEDS: FAMOTIDINE INJ/PF 20 MG/2 ML SDV IV SCH ×2 (11:49→21:51)
[2019-01-02] MEDS: ACETAMINOPHEN 325 MG TABLET PO PRN (16:45)
[2019-01-03] MEDS: ACETAMINOPHEN 325 MG TABLET PO PRN (00:39)
[2019-01-03 06:33] LABS: ABSOLUTE BASOPHILS # (AUTO) 0.1 10^3/uL (0.0-0.2); ABSOLUTE EOSINOPHILS # (AUTO) 0.5 10^3/uL (0.0-0.6); ABSOLUTE LYMPHOCYTES (AUTO) 1.2 10^3/uL (0.5-4.7); ABSOLUTE MONOCYTES (AUTO) 1.3 10^3/uL (0.1-1.4); ABSOLUTE NEUT (AUTO) 7.1 10^3/uL (1.7-8.2); BASOPHILS % (AUTO) 0.8 % (0-2); EOSINOPHILS % (AUTO) 4.9 % (0-6); HEMATOCRIT 24.4 % (37.9-51.0); HEMOGLOBIN 8.4 g/dL (13.5-17.0); LYMPHOCYTES % (AUTO) 11.4 % (13-45); MEAN CORPUSCULAR HEMOGLOBIN 30.7 pg (27.0-33.4); MEAN CORPUSCULAR HGB CONC 34.5 g/dL (32.0-36.0); MEAN CORPUSCULAR VOLUME 89 fl (80-97); MONOCYTES % (AUTO) 12.7 % (3-13); PLATELET COUNT 275 10^3/uL (150-450); RED BLOOD COUNT 2.73 10^6/uL (4.35-5.55); RED CELL DISTRIBUTION WIDTH 15.1 % (11.5-14.0); SEGMENTED NEUTROPHILS % (AUTO) 70.2 % (42-78); TOTAL CELLS COUNTED % (AUTO) 100 %; WHITE BLOOD COUNT 10.1 10^3/uL (4.0-10.5)
[2019-01-03 06:44] LABS: ANION GAP 6 (5-19); BLOOD UREA NITROGEN 15 mg/dL (7-20); CALCIUM 8.2 mg/dL (8.4-10.2); CARBON DIOXIDE 26 mmol/L (22-30); CHLORIDE 103 mmol/L (98-107); GLUCOSE 87 mg/dL (75-110); POTASSIUM 3.8 mmol/L (3.6-5.0)
--- NOTE | 2019-01-03 07:57 | PDOC DISCHARGE SUMMARY ---
General - Admit/Disc Date/PCP Admission Date/Primary Care Provider: 12/28/18 05:31 BRAEDEN WATSON PA-C Discharge Date: 01/03/19 - Discharge Diagnosis Final Diagnosis: colon mass - Assessment Summary: Patient was admitted on 12/28/2018 for an elective laparoscopic left hemicolectomy for an unresectable by endoscopic techniques for a. Colonic polyp. He underwent the procedure on the day of admission and tolerated well he was admitted to the hospital for observation postop. He did well postop with a slow return of bowel function. Over the course of 4 to 5 days he was slowly advanced from a clear liquid diet to regular diet upon discharge. He had return of bowel function and is now having normal bowel movements. His wound is clean and dry and is ready for discharge home today. He will be followed up in the surgical clinic for staple removal in the next 7 to 10 days. - Additional Information Resuscitation Status: Full Code Discharge Diet: As Tolerated Discharge Activity: Activity As Tolerated, No Lifting Over 10 Pounds - needs a f/u with me in 7-10 days. Referrals: CHIVO FAIRBANKS MD [ACTIVE STAFF] - (s/p colon resection 12/28) Home Medications: Aspirin [Aspirin 325 mg Tablet] 325 mg PO QAM 10/31/18 Pantoprazole Sodium 40 mg PO QAM 10/31/18 History of Present Illiness History of Present Illness: ANNETTE PACE is a 73 year old male Physical Exam Vital Signs: Temp Pulse Resp BP Pulse Ox 98.1 F 70 17 158/80 H 97 01/03/19 00:34 01/03/19 00:34 01/03/19 00:34 01/03/19 00:34 01/03/19 00:34 Intake & Output 01/02/19 01/03/19 01/04/19 06:59 06:59 06:59 Intake Total 680 760 Output Total 975 0990 Balance -295 -690 Weight 80.4 kg 82.2 kg Results Laboratory Results: WBC 10.1 10^3/uL (4.0-10.5) 01/03/19 05:32 RBC 2.73 10^6/uL (4.35-5.55) L 01/03/19 05:32 Hgb 8.4 g/dL (13.5-17.0) L 01/03/19 05:32 Hct 24.4 % (37.9-51.0) L 01/03/19 05:32 MCV 89 fl (80-97) 01/03/19 05:32 MCH 30.7 pg (27.0-33.4) 01/03/19 05:32 MCHC 34.5 g/dL (32.0-36.0) 01/03/19 05:32 RDW 15.1 % (11.5-14.0) H 01/03/19 05:32 Plt Count 275 10^3/uL (150-450) 01/03/19 05:32 Lymph % (Auto) 11.4 % (13-45) L 01/03/19 05:32 [place] % (Auto) 12.7 % (3-13) 01/03/19 05:32 Eos % (Auto) 4.9 % (0-6) 01/03/19 05:32 Baso % (Auto) 0.8 % (0-2) 01/03/19 05:32 Absolute Neuts (auto) 7.1 10^3/uL (1.7-8.2) 01/03/19 05:32 Absolute Lymphs (auto) 1.2 10^3/uL (0.5-4.7) 01/03/19 05:32 Absolute Monos (auto) 1.3 10^3/uL (0.1-1.4) 01/03/19 05:32 Absolute Eos (auto) 0.5 10^3/uL (0.0-0.6) 01/03/19 05:32 Absolute Basos (auto) 0.1 10^3/uL (0.0-0.2) 01/03/19 05:32 Seg Neutrophils % 70.2 % (42-78) 01/03/19 05:32 Sodium 134.7 mmol/L (137-145) L 01/03/19 05:32 Potassium 3.8 mmol/L (3.6-5.0) 01/03/19 05:32 Chloride 103 mmol/L (98-107) 01/03/19 05:32 Carbon Dioxide 26 mmol/L (22-30) 01/03/19 05:32 Anion Gap 6 (5-19) 01/03/19 05:32 BUN 15 mg/dL (7-20) 01/03/19 05:32 Creatinine 1.82 mg/dL (0.52-1.25) H 01/03/19 05:32 Est GFR ( Amer) 44 (>60) L 01/03/19 05:32 Est GFR (MDRD) Non-Af 36 (>60) L 01/03/19 05:32 Glucose 87 mg/dL (75-110) 01/03/19 05:32 Calcium 8.2 mg/dL (8.4-10.2) L 01/03/19 05:32 Impressions: Chest X-Ray 12/21/18 09:58 IMPRESSION: No acute findings
[2019-01-03 10:32] VITALS: BP 160/75
== END 2019-01-03 09:40 | disposition home or self-care (01) | DRG 331 ==
LOC: INOR 05:31 → 5 12:24
PROVIDERS: ADMIT Surgery; ATTEND Surgery
PROC: 0DTF4ZZ Resection of Right Large Intestine, Percutaneous Endoscopic Approach (ICD-10-PCS; principal; 2018-12-28 07:30)
DX: D12.4 Benign neoplasm of descending colon (principal); K21.9 Gastro-esophageal reflux disease without esophagitis; E88.1 Lipodystrophy, not elsewhere classified; N28.9 Disorder of kidney and ureter, unspecified; Z85.828 Personal history of other malignant neoplasm of skin; Z87.891 Personal history of nicotine dependence; Z95.2 Presence of prosthetic heart valve; Z79.82 Long term (current) use of aspirin; Z79.899 Other long term (current) drug therapy
CPT/HCPCS: 36415; 71046; 790; 80048; 80051; 84132; 85025; 88307; 94799; J0131; J0330; J0690; J1100; J1170; J1644; J1885; J2001; J2250; J2270; J2370; J2405; J2550; J2704; J2710; J3010; J3490; J7060; J7121; S0028

== ENCOUNTER 2019-01-08 12:34 | Emergency (ER) | payer MEDICARE ==
[2019-01-08 12:56] LABS: ABSOLUTE BASOPHILS # (AUTO) 0.3 10^3/uL (0.0-0.2); ABSOLUTE EOSINOPHILS # (AUTO) 0.3 10^3/uL (0.0-0.6); ABSOLUTE LYMPHOCYTES (AUTO) 1.1 10^3/uL (0.5-4.7); ABSOLUTE NEUT (AUTO) 11.8 10^3/uL (1.7-8.2); EOSINOPHILS % (AUTO) 2.2 % (0-6); HEMATOCRIT 30.1 % (37.9-51.0); HEMOGLOBIN 10.1 g/dL (13.5-17.0); LYMPHOCYTES % (AUTO) 7.3 % (13-45); MEAN CORPUSCULAR HEMOGLOBIN 30.1 pg (27.0-33.4); MEAN CORPUSCULAR HGB CONC 33.4 g/dL (32.0-36.0); MEAN CORPUSCULAR VOLUME 90 fl (80-97); MONOCYTES % (AUTO) 6.7 % (3-13); PLATELET COUNT 625 10^3/uL (150-450); RED BLOOD COUNT 3.35 10^6/uL (4.35-5.55); RED CELL DISTRIBUTION WIDTH 15.4 % (11.5-14.0); SEGMENTED NEUTROPHILS % (AUTO) 81.8 % (42-78); TOTAL CELLS COUNTED % (AUTO) 100 %; WHITE BLOOD COUNT 14.4 10^3/uL (4.0-10.5)
[2019-01-08 14:37] LABS: APPEARANCE,URINE CLEAR; BILIRUBIN,URINE NEGATIVE (NEGATIVE); COLOR,URINE YELLOW; GLUCOSE, URINE NEGATIVE (NEGATIVE); KETONES,URINE TRACE mg/dL (NEGATIVE); LEUKOCYTE ESTERASE,URINE NEGATIVE (NEGATIVE); NITRITE,URINE NEGATIVE (NEGATIVE); PROTEIN,URINE NEGATIVE (NEGATIVE); URINE SPECIFIC GRAVITY 1.013; UROBILINOGEN,URINE NEGATIVE mg/dL (<2.0)
[2019-01-08 14:37] LABS: ALBUMIN 3.2 g/dL (3.5-5.0); ALKALINE PHOSPHATASE 90 U/L (38-126); ANION GAP 11 (5-19); ASPARTATE AMINO TRANSFERASE 64 U/L (17-59); BILIRUBIN,DIRECT 0.3 mg/dL (0.0-0.4); BILIRUBIN,TOTAL 0.8 mg/dL (0.2-1.3); BLOOD UREA NITROGEN 15 mg/dL (7-20); CALCIUM 8.4 mg/dL (8.4-10.2); CARBON DIOXIDE 23 mmol/L (22-30); CHLORIDE 101 mmol/L (98-107); GLUCOSE 105 mg/dL (75-110); POTASSIUM 4.2 mmol/L (3.6-5.0); TOTAL PROTEIN 6.8 g/dL (6.3-8.2)
--- NOTE | 2019-01-08 14:52 | ER Document Report ---
ED Medical Screen (RME) - General Chief Complaint: Numbness Stated Complaint: RIGHT HAND NUMBNESS Time Seen by Provider: 01/08/19 14:47 Primary Care Provider: BRAEDEN WATSON PA-C [Primary Care Provider] - Follow up as needed Mode of Arrival: Medic Information source: Patient Notes: 73-year-old male presented to ED for complaint of intermittent numbness to the right hand and thumb. He states he was at home in the shower today when his right hand became numb. He states then it got better and was no longer numb. He states he called the family who called EMS. He states again the hand did become numb but it is not numb at this time. He does have a history of a leaky white mitral valve. He states that in June it did rupture and they put in a replacement mitral valve in June of this year. He states that the time they checked at his heart and told him that he had a heart of a young person. He states he was concerned he states he also has kidney insufficiency and they are monitoring his kidney and potassium. They state he is at 30 to 35% of his kidne y function. States he has had injuries to his thoracic spine and cervical spine in the past and never had any surgery on these he also has some shoulder pain and tenderness. We will get x-rays of the cervical thoracic spine and shoulder and have him evaluated by a provider. Patient does not have any chest pain, cardiac symptoms or neurological changes to include any facial droop or palmar drift. He does not have any numbness and tingling to his hand at this time I have greeted and performed a rapid initial assessment of this patient. A comprehensive ED assessment and evaluation of the patient, analysis of test results and completion of medical decision making process will be conducted by an additional ED providers. TRAVEL OUTSIDE OF THE [place] IN LAST 30 DAYS: No - Related Data Allergies/Adverse Reactions: tobramycin Allergy (Verified 01/08/19 12:35) Past Medical History - Social History Chew tobacco use (# tins/day): No Frequency of alcohol use: None Drug Abuse: None - Past Medical History Cardiac Medical History: Reports: Hx Atrial Fibrillation - ONE EPISODE SEVERAL YEARS AGO, TREATED WITH MEDS Denies: Hx Coronary Artery Disease, Hx Heart Attack, Hx Hypercholesterolemia, Hx Hypertension, Hx Peripheral Vascular Disease, Hx Heart Murmur Pulmonary Medical History: Denies: Hx Asthma, Hx Bronchitis, Hx COPD, Hx Pneumonia Neurological Medical History: Reports: Hx Seizures - LAST ONE 1996, NOT CURRENTLY ON MEDS. Denies: Hx Cerebrovascular Accident, Hx Parkinson's Disease Renal/ Medical History: Denies: Hx Benign Prostatic Hyperplasia, Hx End Stage Renal Disease, Hx Kidney Stones, Hx Peritoneal Dialysis GI Medical History: Reports: Hx Gastroesophageal Reflux Disease - GERD, Hx Hiatal Hernia - NO SX INTERVENTION. Denies: Hx Crohn's Disease, Hx Irritable Bowel, Hx Liver Failure, Hx Pancreatitis, Hx Ulcer Musculoskeltal Medical History: Reports Hx Arthritis - BACK, Denies Hx Fibromyalgia, Denies Hx Multiple Sclerosis, Denies Hx Muscular Dystrophy Psychiatric Medical History: Denies: Hx Dementia Traumatic Medical History: Denies: Hx Fractures Past Surgical History: Denies: Hx Appendectomy, Hx Bowel Surgery, Hx Cholecystectomy, Hx Colostomy, Hx Coronary Artery Bypass Graft, Hx Gastric Bypass Surgery, Hx Herniorrhaphy, Hx Pacemaker, Hx Tonsillectomy - Immunizations Hx Diphtheria, Pertussis, Tetanus Vaccination: Yes Physical Exam - Vital signs Vitals: Temp Pulse Resp BP Pulse Ox 98.1 F 80 18 153/79 H 98 01/08/19 12:40 01/08/19 12:40 01/08/19 12:40 01/08/19 12:40 01/08/19 12:40 Course - Vital Signs Vital signs: Temp Pulse Resp BP Pulse Ox 98.1 F 80 18 153/79 H 98 01/08/19 12:40 01/08/19 12:40 01/08/19 12:40 01/08/19 12:40 01/08/19 12:40 - Laboratory Result Diagrams: 01/08/19 12:41 01/08/19 12:41 Laboratory results interpreted by me: 01/08/19 01/08/19 01/08/19 12:41 12:41 14:25 WBC 14.4 H RBC 3.35 L Hgb 10.1 L Hct 30.1 L RDW 15.4 H Plt Count 625 H Lymph % (Auto) 7.3 L Absolute Neuts (auto) 11.8 H Absolute Basos (auto) 0.3 H Seg Neutrophils % 81.8 H Sodium 134.6 L Creatinine 1.90 H Est GFR ( Amer) 42 L Est GFR (MDRD) Non-Af 35 L AST 64 H Albumin 3.2 L Urine Ketones TRACE H Doctor's Discharge - Discharge Referrals: BRAEDEN WATSON PA-C [Primary Care Provider] - Follow up as needed
--- NOTE | 2019-01-08 15:45 | RADIOLOGY REPORT (SQ) ---
EXAM DESCRIPTION: CERV SP 4 OR 5 VIEWS COMPLETED DATE/TIME: 01/08/2019 3:26 pm REASON FOR STUDY: intermittent numbness to right hand previous back COMPARISON: None. NUMBER OF VIEWS: Five views. TECHNIQUE: AP, lateral, obliques and odontoid radiographic images acquired of the cervical spine. LIMITATIONS: None. FINDINGS: MINERALIZATION: Normal. ALIGNMENT: Anatomic. VERTEBRAE: Vertebral bodies of normal height. DISCS: No significant osteophytes or sclerosis. Disc height maintained. FORAMINA: No osteophytes or foraminal narrowing. LATERAL AND POSTERIOR ELEMENTS: Facets, lateral masses and spinous processes without significant find ings. HARDWARE: None in the spine. SOFT TISSUES: No masses or calcifications. Lung apices clear. OTHER: No other significant finding. IMPRESSION: NO SIGNIFICANT RADIOGRAPHIC FINDING IN THE CERVICAL SPINE. TECHNICAL DOCUMENTATION: JOB ID: [id number] [employer]- All Rights Reserved Reading location - IP/workstation name: [email or web address]
--- NOTE | 2019-01-08 15:45 | ER Document Report ---
ED General - General Chief Complaint: Numbness Stated Complaint: RIGHT HAND NUMBNESS Time Seen by Provider: 01/08/19 14:47 Primary Care Provider: BRAEDEN WATSON PA-C [Primary Care Provider] - Follow up as needed Mode of Arrival: Medic TRAVEL OUTSIDE OF THE [place] IN LAST 30 DAYS: No - HPI Notes: Patient is a 73-year-old male with a history of mitral valve replacement, arthritis, GERD, and left hemicolectomy performed about a week ago who presents complaining of having right hand and wrist numbness/heaviness at 1130 this morning when he was in the shower. Patient states that it resolved after about 5 minutes. Patient states that he is otherwise feeling well at this time. He has been eating and drinking without difficulty. He is urinating normally. He is having normal bowel movements status post surgery. He is not on any blood thinning medications. No injury. No history of DVT, PE, CAD, CVA, TIA, diabetes. Denies any headache, fever, head injury, neck pain, changes in vision/speech/mentation/hearing, URI, sore throat, chest pain, palpitations, syncope, cough, shortness of breath, wheeze, dyspnea, abdominal pain, nausea/vomiting/diarrhea, urinary retention, dysuria, hematuria, loss of control of bowel or bladder, saddle anesthesia, muscle paralysis/weakness, or rash. Patient had imaging ordered at triage, but states that he is always had some pain in this area from his arthritis, nothing acute. - Related Data Allergies/Adverse Reactions: tobramycin Allergy (Verified 01/08/19 12:35) Past Medical History - General Information source: Patient - Social History Smoking Status: Former Smoker Chew tobacco use (# tins/day): No Frequency of alcohol use: None Drug Abuse: None Family History: Reviewed & Not Pertinent Patient has suicidal ideation: No Patient has homicidal ideation: No - Past Medical History Cardiac Medical History: Reports: Hx Atrial Fibrillation - ONE EPISODE SEVERAL Y EARS AGO, TREATED WITH MEDS Denies: Hx Coronary Artery Disease, Hx Heart Attack, Hx Hypercholesterolemia, Hx Hypertension, Hx Peripheral Vascular Disease, Hx Heart Murmur Pulmonary Medical History: Denies: Hx Asthma, Hx Bronchitis, Hx COPD, Hx Pneumonia Neurological Medical History: Reports: Hx Seizures - LAST ONE 1996, NOT CURRENTLY ON MEDS. Denies: Hx Cerebrovascular Accident, Hx Parkinson's Disease Renal/ Medical History: Denies: Hx Benign Prostatic Hyperplasia, Hx End Stage Renal Disease, Hx Kidney Stones, Hx Peritoneal Dialysis GI Medical History: Reports: Hx Gastroesophageal Reflux Disease - GERD, Hx Hiatal Hernia - NO SX INTERVENTION. Denies: Hx Crohn's Disease, Hx Irritable B owel, Hx Liver Failure, Hx Pancreatitis, Hx Ulcer Musculoskeletal Medical History: Reports Hx Arthritis - BACK, Denies Hx Fibromyalgia, Denies Hx Multiple Sclerosis, Denies Hx Muscular Dystrophy Psychiatric Medical History: Denies: Hx Dementia Traumatic Medical History: Denies: Hx Fractures Past Surgical History: Reports: Hx Abdominal Surgery, Hx Cardiac Surgery - mitral valve replacement. Denies: Hx Appendectomy, Hx Bowel Surgery, Hx Cholecystectomy, Hx Colostomy, Hx Coronary Artery Bypass Graft, Hx Gastric Bypass Surgery, Hx Herniorrhaphy, Hx Pacemaker, Hx Tonsillectomy - Immunizations Hx Diphtheria, Pertussis, Tetanus Vaccination: Yes Review of Systems - Review of Systems -: Yes All other systems reviewed and negative Physical Exam - Vital signs Vitals: Temp Pulse Resp BP Pulse Ox 98.1 F 80 18 153/79 H 98 01/08/19 12:40 01/08/19 12:40 01/08/19 12:40 01/08/19 12:40 01/08/19 12:40 - Notes Notes: PHYSICAL EXAMINATION: GENERAL: Well-appearing, well-nourished and in no acute distress. A&Ox4. Answers questions appropriately. HEAD: Atraumatic, normocephalic. Non-tender. EYES: Pupils equal round and reactive to light, extraocular movements intact, sclera anicteric, conjunctiva are normal. No nystagmus. ENT: EAC clear b/l. TM's intact b/l without erythema, fluid, or perforation. Nares patent and without discharge. oropharynx clear without exudates. No tonsilar hypertrophy or erythema. Moist mucous membranes. NECK: Normal range of motion, supple without lymphadenopathy. No rigidity/meningismus. No midline tenderness. LUNGS: Breath sounds clear to auscultation bilaterally and equal. No wheezes rales or rhonchi. HEART: Regular rate and rhythm without murmurs, rubs, gallops. ABDOMEN: Soft, nontender, nondistended abdomen. No guarding, no rebound. Normal bowel sounds present. No CVA tenderness bilaterally. Musculoskeletal: Ext b/l: FROM to passive/active. Strength 5+/5. No deficits noted. No bony tenderness of extremities. Tinel/phalen neg. Extremities: No cyanosis, clubbing, or edema b/l. Peripheral pulses 2+. Capillary refill less than 2 seconds. NEUROLOGICAL: NIH 0. GCS 15. Cranial nerves grossly intact. Normal speech, normal gait. Normal sensory, motor exams. Reflexes 2+ b/l. LEIGHTON's negative. Pronator drift negative. Heel/scott, finger/nose wnl. PSYCH: Normal mood, normal affect. SKIN: Warm, Dry, normal turgor, no rashes or lesions noted. Course - Re-evaluation Re-evalutation: 01/08/19 15:50 Patient is an afebrile, well-hydrated, 73-year-old male who presents for numbness to the right hand/wrist that has since resolved, possible TIA given patient's age and risk factors. Vitals are acceptable without significant tachycardia, tachypnea, or hypoxia. PE is otherwise unremarkable for any focal neurological deficits, neurovascular compromise, obvious tendon/leg rupture, obvious fracture/dislocation, septic joint. Patient is nontoxic-appearing and is tolerating p.o. without difficulty. Labs grossly unremarkable. CT head pending. Will consider TIA admit with neg CT head and no other acute changes in symptoms. Reviewed with Dr. Becerra who is in agreement with plan. 01/08/19 16:[address] Egan who will come eval the patient to determine admit/dispo. 01/08/19 17:52 Dr. Egan has been in to see the patient a couple times already and pt is aware that a MRI and further TIA work up is recommended by Dr. Egan. Pt, after review with his family as well, is declining admission and has elected to sign out AMA. Pt is aware of the risk/benefit of his decision including possib ility of worsening harm, injury, bodily harm, or . Strict return precautions have been reviewed by myself and Dr. Egan. He is going to see his PCM tomorrow morning. Pt to return with any other worsening/concerning symptoms. Patient is in agreement. - Vital Signs Vital signs: Temp Pulse Resp BP Pulse Ox 98.1 F 80 18 153/79 H 98 01/08/19 12:40 01/08/19 12:40 01/08/19 12:40 01/08/19 12:40 01/08/19 12:40 - Laboratory Result Diagrams: 01/08/19 12:41 01/08/19 12:41 Laboratory results interpreted by me: 01/08/19 01/08/19 01/08/19 12:41 12:41 12:41 WBC 14.4 H RBC 3.35 L Hgb 10.1 L Hct 30.1 L RDW 15.4 H Plt Count 625 H Lymph % (Auto) 7.3 L Absolute Neuts (auto) 11.8 H Absolute Basos (auto) 0.3 H Seg Neutrophils % 81.8 H PT 16.8 H APTT 38.4 H Sodium 134.6 L Creatinine 1.90 H Est GFR ( Amer) 42 L Est GFR (MDRD) Non-Af 35 L AST 64 H Albumin 3.2 L Urine Ketones 01/08/19 14:25 WBC RBC Hgb Hct RDW Plt Count Lymph % (Auto) Absolute Neuts (auto) Absolute Basos (auto) Seg Neutrophils % PT APTT Sodium Creatinine Est GFR ( Amer) Est GFR (MDRD) Non-Af AST Albumin Urine Ketones TRACE H Discharge - Discharge Clinical Impression: Resolved focal neurological deficit Condition: Stable Disposition: AGAINST MEDICAL ADVICE Additional Instructions: As reviewed, you are electing to sign out AGAINST MEDICAL ADVICE. This does put you at risk for possible worsening condition, injury, bodily harm, or even . It is important that you monitor symptoms very closely and return with any worsening or concerning symptoms. They are to follow with your family doctor tomorrow morning as you have planned. Do not hesitate to return if needed. Referrals: BRAEDEN WATSON PA-C [Primary Care Provider] - Follow up tomorrow
--- NOTE | 2019-01-08 15:46 | RADIOLOGY REPORT (SQ) ---
EXAM DESCRIPTION: T SPINE AP/LAT COMPLETED DATE/TIME: 01/08/2019 3:26 pm REASON FOR STUDY: intermittent numbness to right hand previous back COMPARISON: None. NUMBER OF VIEWS: Two views. TECHNIQUE: AP and lateral radiographic images acquired of the thoracic spine. LIMITATIONS: None. FINDINGS: MINERALIZATION: Normal. ALIGNMENT: Normal. No scoliosis. 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 This appears to be chronic and was present on prior chest x-ray (12/21/2018). Otherwise intact. DISCS: Multilevel disc space narrowing with osteophytes. HARDWARE: None in the spine. MEDIASTINUM AND SOFT TISSUES: Normal heart size and aortic contour. No soft tissue abnormality. VISUALIZED LUNG KRAFT: Clear. OTHER: No other significant finding. IMPRESSION: CHRONIC CHANGES DESCRIBED. NO APPARENT ACUTE FINDINGS. TECHNICAL DOCUMENTATION: JOB ID: [id number] [employer]- All Rights Reserved Reading location - IP/workstation name: [email or web address]
--- NOTE | 2019-01-08 15:48 | RADIOLOGY REPORT (SQ) ---
EXAM DESCRIPTION: SHOULDER RIGHT 2 OR MORE VIEWS COMPLETED DATE/TIME: 01/08/2019 3:26 pm REASON FOR STUDY: intermittent numbness to right hand previous back COMPARISON: None. NUMBER OF VIEWS: Three views. TECHNIQUE: Internal rotation, external rotation, and Y view images acquired of the right shoulder. LIMITATIONS: None. FINDINGS: MINERALIZATION: Normal. BONES: No acute fracture. No worrisome bone lesions. JOINTS: No dislocation. VISUALIZED LUNGS AND RIBS: No pneumothorax. No rib fracture. SOFT TISSUES: No radiopaque foreign body. OTHER: No other significant finding. IMPRESSION: NEGATIVE STUDY OF THE RIGHT SHOULDER. NO RADIOGRAPHIC EVIDENCE OF ACUTE INJURY. TECHNICAL DOCUMENTATION: JOB ID: [id number] [employer]- All Rights Reserved Reading location - IP/workstation name: [email or web address]
[2019-01-08 16:02] LABS: INTERNATIONAL RATION (INR) 1.35; PROTHROMBIN TIME 16.8 SEC (11.4-15.4)
[2019-01-08 16:03] LABS: PARTIAL THROMBOPLASTIN TIME 38.4 SEC (23.5-35.8)
--- NOTE | 2019-01-08 16:08 | RADIOLOGY REPORT (SQ) ---
EXAM DESCRIPTION: CT HEAD WITHOUT COMPLETED DATE/TIME: 01/08/2019 3:56 pm REASON FOR STUDY: resolved rt hand/wrist numbness COMPARISON: None. TECHNIQUE: Axial images acquired through the brain without intravenous contrast. Images reviewed wi th bone, brain and subdural windows. Additional sagittal and coronal reconstructions were generated. Images stored on PACS. All CT scanners at this facility use dose modulation, iterative reconstruction, and/or weight based d osing when appropriate to reduce radiation dose to as low as reasonably achievable (ALARA). [facility]: Dose Right [facility]: CareDose [facility]: Dose Right [facility]: Teradose 4D [facility]: [email or web address] RADIATION DOSE: CT Rad equipment meets quality standard of care and radiation dose reduction techniq ues were employed. CTDIvol: 53.2 mGy. DLP: 1017 mGy-cm. mGy. LIMITATIONS: None. FINDINGS: VENTRICLES: Normal size and contour. CEREBRUM: No masses. No hemorrhage. No midline shift. No evidence for acute infarction. Normal gra y/white matter differentiation. No areas of low density in the white matter. CEREBELLUM: No masses. No hemorrhage. No alteration of density. No evidence for acute infarction. EXTRAAXIAL SPACES: No fluid collections. No masses. ORBITS AND GLOBE: No intra- or extraconal masses. Normal contour of globe without masses. CALVARIUM: No fracture. PARANASAL SINUSES: No fluid or mucosal thickening. SOFT TISSUES: No mass or hematoma. OTHER: No other significant finding. IMPRESSION: NORMAL BRAIN CT WITHOUT CONTRAST. EVIDENCE OF ACUTE STROKE: NO. COMMENT: Quality ID # [id number]: Final reports with documentation of one or more dose reduction techniques (e.g., Automated exposure control, adjustment of the mA and/or kV according to patient size, use of iterative reconstruction technique) TECHNICAL DOCUMENTATION: JOB ID: [id number] [employer]- All Rights Reserved Reading location - IP/workstation name: [email or web address]
--- NOTE | 2019-01-08 16:55 | EKG REPORT ---
SEVERITY:- ABNORMAL ECG - SINUS RHYTHM PROLONGED QT INTERVAL : Confirmed by: Shena Padron MD 08-Jan-2019 16:54:48
[2019-01-08 18:27] VITALS: BP 158/70
== END 2019-01-08 18:00 | disposition left against medical advice (07) ==
LOC: ER 12:34
DX: R20.0 Anesthesia of skin (principal); Z90.49 Acquired absence of other specified parts of digestive tract; Z87.891 Personal history of nicotine dependence; Z53.20 Procedure and treatment not carried out because of patient's decision for unspecified reasons; Z88.1 Allergy status to other antibiotic agents
CPT/HCPCS: 36415; 70450; 72050; 72070; 80053; 81001; 85025; 85610; 85730; 93005; 93010; 99285

== ENCOUNTER → 2019-05-07 | Outpatient (CLI) | payer MEDICARE ==
--- NOTE | 2019-05-07 13:17 | RADIOLOGY REPORT (SQ) ---
EXAM DESCRIPTION: U/S RETROPERITON (RENAL/AORTA) COMPLETED DATE/TIME: 05/07/2019 12:09 pm REASON FOR STUDY: N18.3 CHRONIC KIDNEY DISEASE, STAGE 3 (MODERATE) N18.3 CHRONIC KIDNEY DISEASE, ST AGE 1 (MODERATE) COMPARISON: None. TECHNIQUE: Dynamic and static grayscale images acquired of the kidneys and bladder and recorded on P ACS. Additional selected color Doppler and spectral images recorded. LIMITATIONS: None. FINDINGS: RIGHT KIDNEY: Small kidney with cortical thinning, 8.5 cm. Increased echogenicity. No so lid mass. 14 mm cyst. No hydronephrosis. No calculi. LEFT KIDNEY: Normal size, 9.8 cm. Increased echogenicity. Cortical thinning. No solid mass, no hy dronephrosis, no calculi. BLADDER: No masses. OTHER FINDINGS: No other significant finding. IMPRESSION: There changes in the kidneys suggesting medical renal disease. The right kidney is some what atrophic. There is no hydronephrosis on either side. TECHNICAL DOCUMENTATION: JOB ID: [id number] [employer]- All Rights Reserved Reading location - IP/workstation name: [email or web address]
== END ==
LOC: RAD 11:14
PROVIDERS: ATTEND Internal Medicine Nephrology
DX: N18.3 Chronic kidney disease, stage 3 (moderate) (principal)
CPT/HCPCS: 76770

== ENCOUNTER → 2019-06-04 | Outpatient (CLI) | payer MEDICARE ==
[2019-06-04 12:19] LABS: APPEARANCE,URINE CLEAR; BILIRUBIN,URINE NEGATIVE (NEGATIVE); COLOR,URINE YELLOW; GLUCOSE, URINE NEGATIVE (NEGATIVE); KETONES,URINE NEGATIVE (NEGATIVE); LEUKOCYTE ESTERASE,URINE NEGATIVE (NEGATIVE); NITRITE,URINE NEGATIVE (NEGATIVE); PROTEIN,URINE NEGATIVE (NEGATIVE); URINE SPECIFIC GRAVITY 1.015; UROBILINOGEN,URINE NEGATIVE mg/dL (<2.0)
[2019-06-04 12:22] LABS: ABSOLUTE BASOPHILS # (AUTO) 0.1 10^3/uL (0.0-0.2); ABSOLUTE EOSINOPHILS # (AUTO) 0.2 10^3/uL (0.0-0.6); ABSOLUTE LYMPHOCYTES (AUTO) 2.2 10^3/uL (0.5-4.7); ABSOLUTE MONOCYTES (AUTO) 0.9 10^3/uL (0.1-1.4); ABSOLUTE NEUT (AUTO) 5.5 10^3/uL (1.7-8.2); BASOPHILS % (AUTO) 0.7 % (0-2); EOSINOPHILS % (AUTO) 2.7 % (0-6); HEMATOCRIT 40.3 % (37.9-51.0); HEMOGLOBIN 13.8 g/dL (13.5-17.0); LYMPHOCYTES % (AUTO) 24.6 % (13-45); MEAN CORPUSCULAR HGB CONC 34.1 g/dL (32.0-36.0); MEAN CORPUSCULAR VOLUME 91 fl (80-97); MONOCYTES % (AUTO) 9.9 % (3-13); PLATELET COUNT 303 10^3/uL (150-450); RED BLOOD COUNT 4.44 10^6/uL (4.35-5.55); RED CELL DISTRIBUTION WIDTH 14.5 % (11.5-14.0); SEGMENTED NEUTROPHILS % (AUTO) 62.1 % (42-78); TOTAL CELLS COUNTED % (AUTO) 100 %; WHITE BLOOD COUNT 8.9 10^3/uL (4.0-10.5)
[2019-06-04 12:41] LABS: ANISOCYTOSIS SLIGHT
[2019-06-04 12:42] LABS: PLATELET COMMENT ADEQUATE
[2019-06-04 12:45] LABS: ALBUMIN 4.1 g/dL (3.5-5.0); ALKALINE PHOSPHATASE 60 U/L (38-126); ANION GAP 10 (5-19); ASPARTATE AMINO TRANSFERASE 28 U/L (17-59); BILIRUBIN,DIRECT 0.3 mg/dL (0.0-0.4); BILIRUBIN,TOTAL 0.4 mg/dL (0.2-1.3); BLOOD UREA NITROGEN 30 mg/dL (7-20); CALCIUM 9.2 mg/dL (8.4-10.2); CARBON DIOXIDE 26 mmol/L (22-30); CHLORIDE 103 mmol/L (98-107); GLUCOSE 87 mg/dL (75-110); PHOSPHORUS 3.8 mg/dL (2.5-4.5); POTASSIUM 4.8 mmol/L (3.6-5.0); TOTAL PROTEIN 7.9 g/dL (6.3-8.2)
== END ==
LOC: OD 11:52
PROVIDERS: ATTEND Internal Medicine Nephrology
DX: N18.3 Chronic kidney disease, stage 3 (moderate) (principal); E87.5 Hyperkalemia
CPT/HCPCS: 36415; 80053; 81001; 83970; 84100; 85025